=== PATIENT | female | born 1965 | race Caucasian/White ===

== ENCOUNTER 2017-08-29 07:48 | Outpatient (CLI) | payer BC ==
--- NOTE | 2017-08-29 09:28 | CT ---
CT ABDOMEN AND PELVIS WITH ORAL AND IV CONTRAST: Date: 08/29/17 HISTORY: Abnormal finding on CT scan of 04/09/17 at [facility] [place], history of breast cancer. FINDINGS: Comparison made with exam of 04/09/17 from [facility] [place]. The lung bases are unremarkable. No free air, free fluid, or lymphadenopathy is seen in the abdomen o r pelvis. No calcified gallstones are seen. The liver, spleen, pancreas, adrenal glands, and kidneys are normal. The approximately 3.0 cm cystic mass/fluid collection in the right paracolic gutter is stable. The sm all bowel loops are not abnormally dilated. The patient is status post hysterectomy. There is a new 1 .4 cm cystic mass in the left adnexa. No aneurysmal dilatation of the abdominal aorta is seen. No ost eolytic or osteoblastic lesions are identified. IMPRESSION: 1. Stable cystic mass in the right paracolic gutter since 04/09/17. 2. New 1.4 cm cystic mass in the left adnexa. Pelvic ultrasound is recommended. POS: REY
== END 2017-08-29 07:49 | disposition home or self-care (01) ==
LOC: CT 07:48
PROVIDERS: ATTEND Internal Medicine Gastroenterology
DX: R93.3 Abnormal findings on diagnostic imaging of other parts of digestive tract (principal); R19.09 Other intra-abdominal and pelvic swelling, mass and lump
CPT/HCPCS: 74177

== ENCOUNTER 2021-07-25 11:25 | Outpatient (CLI) | payer BC | END 2021-07-25 11:26 | disposition home or self-care (01) | LOC: BICRAD 11:25 | PROVIDERS: ATTEND Nurse Practitioner Family | DX: R01.1 Cardiac murmur, unspecified (principal); M79.10 Myalgia, unspecified site; R31.9 Hematuria, unspecified; K21.9 Gastro-esophageal reflux disease without esophagitis; R63.6 Underweight; I51.7 Cardiomegaly; R94.31 Abnormal electrocardiogram [ECG] [EKG] | CPT/HCPCS: 71046 ==